=== PATIENT | female | born 1990 | race African-American/Black ===

== ENCOUNTER 2016-07-12 20:57 | Emergency (ER) | payer OTHER ==
--- NOTE | 2016-07-12 21:11 | PHYS DOC ---
General Stated Complaint: N/V Time Seen by MD: 21:08 Source: patient Problems: History of Present Illness Initial Comments Patient here for nausea vomiting. Patient states that since this morning, she said 4 episodes of vomiting. She is able tolerate small amount of fluids and juice, vomits up everything else she has to eat or drink. She says she seen mucus but no blood or bilious material. She's felt a little hot and cold today but no distinct fever and chills. No runny nose or sore throat. There is no chest pain or shortness of breath. She does have some lower abdominal discomfort as well which she is unable to describe in quality. She said it was so bad that she was bent over her desk at work earlier, but better now. She's had one episode of diarrhea earlier this morning but not since. There is no vaginal bleeding or discharge. Her last period was the 10th of this month. She says she has a tubal ligation but got in the past despite this. She denies any acute focal extremity or neurologic complaints. 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 Other than present for care today she's been nothing for this at home and notes no factors increase or decrease her symptoms. Patient's past history is remarkable for multiple mental health diagnoses include bipolar disorder and schizophrenia. She says she has not been taking her medications for quite some time. She says her last mental health issue was in December of last year. She is nonsmoker and nonuser of ethanol. She drinks quite a bit of tea during the course today. She avoids coffee and soda. She did have an energy drink last night. She is no significant user of Tylenol aspirin or Motrin. Allergies: Coded Allergies: Penicillins (Verified Allergy, Unknown, 07/12/16) Past Medical History Medical History: no pertinent history Psychosocial History: bipolar, schizophrenia Social History Smoker: non-smoker Alcohol: none Review of Systems All Other Systems: Reviewed and Negative Physical Exam General Appearance: WD/WN, no apparent distress Ear, Nose, Throat: normal ENT inspection, normal pharynx Neck: full range of motion, supple, normal inspection Respiratory: lungs clear, normal breath sounds, no respiratory distress Cardiovascular: regular rate, rhythm, no edema Gastrointestinal: non tender, soft, no organomegaly Back: no CVA tenderness, no vertebral tenderness Extremities: non-tender, normal inspection Neurologic/Psychiatric: alert, normal mood/affect, oriented x 3 Skin: normal color Lymphatic: no adenopathy Comments Generally this is a well-developed well-nourished female in no acute distress. Vitals are as noted. Pertinent findings on physical exam shows a ears and throat to be clear. Chest is clear and cardiac exams unremarkable. The abdomen is soft and fully nontender without masses, organomegaly, peritoneal findings. Back shows no CVA tenderness. Externally show no rashes, cyanosis, or edema. Neurologic exam finds patient is alert oriented 4. She is not actively hallucinating. Remainder of physical exam is clinically unremarkable. Orders, Labs, Meds Old charts note no prior ER visits within the current system. 2230 Patient resting comfortably in the ED. She really had no signs or symptoms suggesting any evidence of dehydration, she was not actively vomiting, it was felt reasonable to defer labs and x-rays this time. She did receive some Zofran as well as a GI cocktail, which is relieved her abdominal pain and she's had no further vomiting. She is able tolerate fluids without difficulty. I discussed with the patient the uncertain cause for abdominal upset. This may be mild viral illness or some food intolerance. In any event, as long as she is able tolerate fluids I think she'll do well. We discussed home care including rest, increasing clear liquids, and use of Advil or Tylenol as needed for fever or pain. I'll give her prescription for Zofran should she have any further vomiting. She voices understanding the usual self limited nature of this illness , but also voices the need to return if she is worsening anyway as well as to follow up with primary care for recheck. Her abdominal pain is mostly in the lower area, and well GI cocktail did seem to help I don't strongly suspect gastritis or ulcer disease. She really has limited GI risk factors, that she does drink tea and used an energy drink in any event, she looks well, not vomiting, able tolerate by mouth fluids, in no acute discomfort distress at this time, and okay for discharge home. TREV HERNÁNDEZ MD Jul 12, 2016 21:11
[2016-07-12 21:15] VITALS: BP 125/72
[2016-07-12] MEDS ORDERED: LIDO:MAALOX 1:1 20 ML SINGLE DOSE ONE (21:33)
[2016-07-12] MEDS ORDERED: ONDANSETRON ODT 4 MG TAB.RAPDIS ONE (21:34)
[2016-07-12] MEDS: ONDANSETRON ODT 4 MG TAB.RAPDIS PO ONE (21:36)
[2016-07-12] MEDS: LIDO:MAALOX 1:1 20 ML SINGLE DOSE PO ONE (21:36)
== END 2016-07-12 22:55 | disposition home or self-care (01) ==
LOC: ER 21:02
DX: R11.2 Nausea with vomiting, unspecified (principal); R10.9 Unspecified abdominal pain; R19.7 Diarrhea, unspecified; F31.9 Bipolar disorder, unspecified; F20.9 Schizophrenia, unspecified; Z88.0 Allergy status to penicillin
CPT/HCPCS: 99283; Q0162

== ENCOUNTER 2016-11-05 03:35 | Emergency (ER) | payer OTHER ==
[~2016-11-05] VITALS: Ht 160 cm; Wt 108.7 kg
[2016-11-05] MEDS ORDERED: 0.9 % SODIUM CHLORIDE 10 ML DISP.SYRIN. IV PRN (03:45)
--- NOTE | 2016-11-05 03:51 | EKG ---
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
--- NOTE | 2016-11-05 03:59 | PHYS DOC ---
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 Awakened her at 0300am from sleep. Pain was "squeezing" and a 4 in the left breast. No radiation. Some SOA. No palpitations. She has not been on her meds "because I can't afford them." Has been "working a lot." Some loose stool today. No travel, no BCP. Review of Systems Review of Systems Constitutional: Denies fever or chills Eyes: Denies change in visual acuity, redness, or eye pain HENT: Denies nasal congestion or sore throat Respiratory: Denies cough or shortness of breath Cardiovascular: see HPI GI: Denies abdominal pain, nausea, vomiting, bloody stools. Some loose stool. : Denies dysuria or hematuria Musculoskeletal: Denies back pain or joint pain Integument: Denies rash or skin lesions Neurologic: Denies headache, focal weakness or sensory changes Current Medications Current Medications Current Medications Medications (Trade) Dose Ordered Sig/Denise Start Time Stop Time Status Last Admin Dose Admin Sodium Chloride (Normal Saline Flush) 10 ml QSHIFT PRN 11/05/16 03:45 Allergies Allergies Allergies Coded Allergies Type Severity Reaction Last Updated Verified Penicillins Allergy Intermediate 11/05/16 Yes Physical Exam Physical Exam Constitutional: Well developed, well nourished, no acute distress, non-toxic appearance. HENT: Normocephalic, atraumatic, bilateral external ears normal, oropharynx moist, no oral exudates, nose normal. Eyes: PERRLA, EOMI, conjunctiva normal, no discharge. Neck: Normal range of motion, no tenderness, supple, no stridor. Cardiovascular:Heart rate regular rhythm, no murmur Lungs & Thorax: Bilateral breath sounds clear to auscultation Abdomen: Bowel sounds normal, soft, no tenderness, no masses, no pulsatile masses. Skin: Warm, dry, no erythema, no rash. Back: No tenderness, no CVA tenderness. Extremities: No tenderness, no cyanosis, no clubbing, ROM intact, no edema. No calf pain, swelling or tenderness. Neurologic: Alert and oriented X 3, normal motor function, normal sensory function, no focal deficits noted. Psychologic: Affect normal, judgement normal, mood normal. Current Patient Data Vital Signs BP 131/70, P 20, T 98.4, sat 100% Lab Results Urine test negative Laboratory Tests Test 11/05/16 04:10 11/05/16 04:22 White Blood Count 6.0 x10^3/uL Red Blood Count 3.94 x10^6/uL Hemoglobin 10.2 g/dL Hematocrit 32.1 % Mean Corpuscular Volume 81 fL Mean Corpuscular Hemoglobin 26 pg Mean Corpuscular Hemoglobin Concent 32 g/dL Red Cell Distribution Width 13.6 % Platelet Count 200 x10^3/uL Neutrophils (%) (Auto) 36 % Lymphocytes (%) (Auto) 57 % Monocytes (%) (Auto) 5 % Eosinophils (%) (Auto) 2 % Basophils (%) (Auto) 1 % Neutrophils # (Auto) 2.2 x10^3uL Lymphocytes # (Auto) 3.4 x10^3/uL Monocytes # (Auto) 0.3 x10^3/uL Eosinophils # (Auto) 0.1 x10^3/uL Basophils # (Auto) 0.0 x10^3/uL Prothrombin Time 10.1 SEC Prothromb Time International Ratio 1.0 Activated Partial Thromboplast Time 25 SEC D-Dimer (Shweta) 0.30 mg/L Sodium Level 140 mmol/L Potassium Level 3.8 mmol/L Chloride Level 106 mmol/L Carbon Dioxide Level 27 mmol/L Anion Gap 7 Blood Urea Nitrogen 13 mg/dL Creatinine 1.1 mg/dL Estimated GFR (Cockcroft-Gault) 71.6 BUN/Creatinine Ratio 12 Glucose Level 79 mg/dL Calcium Level 8.6 mg/dL Total Bilirubin 0.5 mg/dL Direct Bilirubin 0.2 mg/dL Aspartate Amino Transf (AST/SGOT) 14 U/L Alanine Aminotransferase (ALT/SGPT) 18 U/L Alkaline Phosphatase 72 U/L Creatine Kinase 169 U/L Creatine Kinase MB (Mass) 0.5 ng/mL Creatine Kinase MB Relative Index 0.3 % Troponin I Quantitative < 0.017 ng/mL Total Protein 7.2 g/dL Albumin 3.3 g/dL Albumin/Globulin Ratio 0.8 Lipase 250 U/L Bedside Urine HCG, Qualitative hcg negative Current Medications Medications (Trade) Dose Ordered Sig/Denise Route PRN Reason Start Time Stop Time Status Last Admin Dose Admin Sodium Chloride (Normal Saline Flush) 10 ml QSHIFT PRN IV AFTER MEDS AND BLOOD DRAWS 11/05/16 03:45 EKG EKG EKG by my interpretation: NSR rate 74. No acute ST changes. No STEMI Radiology/Procedures Radiology/Procedures CXR by my interpretation: normal cardiac silhouette; no infiltrate. Course & Med Decision Making Course & Med Decision Making Pertinent Labs and Imaging studies reviewed. (See chart for details) Evaluated patient upon arrival. D dimer and cardiac enzymes normal. Lipase normal. May be reflux, biliary colic. Dragon Disclaimer Dragon Disclaimer This chart was dictated in whole or in part using Voice Recognition software in a busy, high-work load, and often noisy Emergency Department environment. It may contain unintended and wholly unrecognized errors or omissions. Departure Departure: Impression: Primary Impression: Chest pain Disposition: HOME, SELF-CARE Condition: GOOD Referrals: PCP,NO (PCP) Patient Instructions: Chest Pain (Nonspecific) BUTCH CRAIN MD Nov 05, 2016 03:59
[2016-11-05 04:22] LABS: BASO % 1 % (0-3); EOS # 0.1 x10^3/uL (0.0-0.7); EOS % 2 % (0-3); HEMATOCRIT 32.1 % (36.0-47.0); HEMOGLOBIN 10.2 g/dL (12.0-15.5); LYMPH # 3.4 x10^3/uL (1.0-4.8); LYMPH % 57 % (24-48); MEAN CORPUSCULAR HEMOGLOBIN 26 pg (25-35); MEAN CORPUSCULAR HGB CONC 32 g/dL (31-37); MEAN CORPUSCULAR VOLUME 81 fL (79-100); MONO # 0.3 x10^3/uL (0.0-1.1); MONO % 5 % (0-9); NEUT # 2.2 x10^3uL (1.8-7.7); NEUT % 36 % (31-73); PLATELET COUNT 200 x10^3/uL (140-400); RED BLOOD COUNT 3.94 x10^6/uL (3.50-5.40); RED CELL DISTRIBUTION WIDTH 13.6 % (11.5-14.5)
[2016-11-05 04:43] LABS: ALBUMIN 3.3 g/dL (3.4-5.0); ALBUMIN/GLOBULIN RATIO 0.8 (1.0-1.7); CALCIUM 8.6 mg/dL (8.5-10.1); CREATININE 1.1 mg/dL (0.6-1.0); DIRECT BILIRUBIN 0.2 mg/dL (0.0-0.2); GFR 71.6; POTASSIUM 3.8 mmol/L (3.5-5.1); TOTAL BILIRUBIN 0.5 mg/dL (0.2-1.0); TOTAL PROTEIN 7.2 g/dL (6.4-8.2)
[2016-11-05] MEDS ORDERED: FAMO-63 PO (05:00)
[2016-11-05 05:07] LABS: % BANDS 6 % (0-9); % LYMPHS 9 % (24-48); % MONOS 3 % (0-10); % SEGS 82 % (35-66); PLT ESTIMATE ADEQUATE (ADEQUATE)
[2016-11-05 05:15] VITALS: BP 122/65
--- NOTE | 2016-11-05 08:39 | RAD ---
INDICATION: chest pain COMPARISON: None FINDINGS: Single view of chest obtained. No focal airspace consolidation. Mediastinal contour is mildly prominent but a portion of this could be from portable technique. No gross osseous destructive lesion. IMPRESSION: No focal airspace consolidation or edema.
== END 2016-11-05 05:25 | disposition home or self-care (01) ==
LOC: ER 03:35
DX: R07.9 Chest pain, unspecified (principal); J45.909 Unspecified asthma, uncomplicated; F31.9 Bipolar disorder, unspecified; Z88.0 Allergy status to penicillin
CPT/HCPCS: 36415; 71010; 80053; 80076; 81025; 82248; 82553; 83690; 84484; 85007; 85027; 85379; 85610; 85730; 93005; 99285-25

== ENCOUNTER 2016-12-23 16:49 | Emergency (ER) | payer OTHER ==
[~2016-12-23] VITALS: Ht 162.6 cm; Wt 90.7 kg
[~2016-12-23 16:49] MED LIST: FAMO-63 PO
[2016-12-23] MEDS ORDERED: IPRATRPIUM/ALBUTEROL 0.5/2.5MG 3 ML NEBU. NEB ONE (18:15)
--- NOTE | 2016-12-23 18:28 | ED.ADGEN ---
Past History Past Medical History: Asthma, Bipolar, Seizure, Schizophrenia Additional Past Medical Histor: suicidal attempt (age 11-age 23) Past Surgical History: Tubal ligation Smoking: Non-smoker Alcohol Use: Occasionally Drug Use: None Adult General Chief Complaint Chief Complaint ".. I got a cough, sore throat x3 days.. and Vaginal discharge... for 2 weeks. " HPI HPI Patient is a 26 year old female who presents with above hx and complaints. No primary care. Pt. has hx of 2 life time sexual partners. Pt. states discharge started two weeks ago. Pt. has previous STD infection of chlamydia which was treated. Patient states her cough has been nonproductive and sore throat started approximately same time of cough. No history of immunosuppression or HIV. Does have a history of bipolar disorder, schizophrenia, asthma, seizures and has been off her meds for approximately year . Patient denies illicit drug use and smoking. Patient relates a family history of hypertension and diabetes. Review of Systems Review of Systems Constitutional: Denies fever or chills [] Eyes: Denies change in visual acuity, redness, or eye pain [] HENT: Complaints of nasal congestion , and sore throat [] Respiratory: Hx of cough Cardiovascular: No additional information not addressed in HPI [] GI: Denies abdominal pain, nausea, vomiting, bloody stools or diarrhea [] : Denies dysuria or hematuria []Complaints of vaginal discharge. Musculoskeletal: Denies back pain or joint pain [] Integument: Denies rash or skin lesions [] Neurologic: Denies headache, focal weakness or sensory changes [] Endocrine: Denies polyuria or polydipsia [] Family History Family History HTN, DM Current Medications Current Medications Current Medications Medications (Trade) Dose Ordered Sig/Denise Start Time Stop Time Status Last Admin Dose Admin Albuterol/ Ipratropium (Duoneb) 3 ml 1X ONCE 12/23/16 18:15 12/23/16 18:23 DC 12/23/16 18:20 3 ML Azithromycin (Zithromax) 1,000 mg 1X ONCE 12/23/16 20:30 12/23/16 20:31 DC 12/23/16 20:24 1,000 MG Ceftriaxone Sodium 1 gm/ Sodium Chloride 50 ml @ 100 mls/hr 1X ONCE 12/23/16 20:15 12/23/16 20:44 DC 12/23/16 20:15 100 MLS/HR Ceftriaxone Sodium (Rocephin) 1 gm STK-MED ONCE 12/23/16 20:12 12/23/16 20:13 DC Lactated Ringer's 1,000 ml @ 1,000 mls/hr Q1H 12/23/16 18:30 12/23/16 19:14 DC 12/23/16 19:13 1,000 MLS/HR Metronidazole (Flagyl) 2,000 mg 1X ONCE 12/23/16 20:30 12/23/16 20:31 DC 12/23/16 20:23 2,000 MG Ondansetron HCl (Zofran) 8 mg 1X ONCE 12/23/16 20:30 12/23/16 20:31 DC 12/23/16 20:23 8 MG Sodium Chloride 50 ml @ As Directed STK-MED ONCE 12/23/16 20:13 12/23/16 20:14 DC Allergies Allergies Allergies Coded Allergies Type Severity Reaction Last Updated Verified Penicillins Allergy Intermediate 11/05/16 Yes Physical Exam Physical Exam Constitutional: no acute distress, non-toxic appearance. [] HENT: Normocephalic, atraumatic, bilateral external ears normal, oropharynx moist but injected, no oral exudates, nose rhinorrhea. Nose ring and lip ring. Eyes: PERRLA, EOMI, conjunctiva normal, no discharge. [] Neck: Normal range of motion, no tenderness, supple, no stridor. [] Cardiovascular:Heart rate regular rhythm, no murmur [] Lungs & Thorax: Bilateral breath sounds equal at apexes with a few scattered wheezes auscultation [] Abdomen: Bowel sounds normal, soft, some generalized lower abdomen tenderness, no masses, no pulsatile masses. Some suprapubic tenderness. Some cervical motion tenderness. Has large amount of white malodorous discharge. Old surgical scars on abdomen. No heel tap. Skin: Warm, dry, no erythema, no rash. [] Back: No tenderness, no CVA tenderness. [] Extremities: No tenderness, no cyanosis, no clubbing, ROM intact, no edema. [] Neurologic: Alert and oriented X 3, normal motor function, normal sensory function, no focal deficits noted. [] Psychologic: Affect anxious, judgement normal, mood normal. [] Current Patient Data Vital Signs Vital Signs Date Time Temp Pulse Resp B/P (MAP) Pulse Ox O2 Delivery O2 Flow Rate FiO2 12/23/16 22:30 98.3 75 20 106/61 (76) 97 12/23/16 18:20 Room Air Lab Results Laboratory Tests Test 12/23/16 17:40 12/23/16 17:50 12/23/16 17:54 12/23/16 19:05 Urine Opiates Screen Neg (NEG) Urine Methadone Screen Neg (NEG) Urine Barbiturates Neg (NEG) Urine Phencyclidine Screen Neg (NEG) Urine Amphetamine/Methamphetamine Neg (NEG) Urine Benzodiazepines Screen Neg (NEG) Urine Cocaine Screen Neg (NEG) Urine Cannabinoids Screen Neg (NEG) Urine Ethyl Alcohol Neg (NEG) Urine Collection Type Unknown Urine Color Yellow Urine Clarity Hazy Urine pH 5.5 Urine Specific [place] >=1.030 Urine Protein Neg (NEG-TRACE) Urine Glucose (UA) Neg mg/dL (NEG) Urine Ketones (Stick) Neg mg/dL (NEG) Urine Blood Neg (NEG) Urine Nitrite Neg (NEG) Urine Bilirubin Neg (NEG) Urine Urobilinogen Dipstick 0.2 mg/dL (0.2 mg/dL) Urine Leukocyte Esterase Mod (NEG) Urine RBC 3-5 /HPF (0-2) Urine WBC 5-10 /HPF (0-4) Urine Squamous Epithelial Cells Many /LPF Urine Bacteria Mod /HPF (0-FEW) Urine Mucus Mod /LPF Group A Streptococcus Rapid Negative (NEGATIVE) POC Urine HCG, Qualitative hcg negative (Negative) White Blood Count 8.5 x10^3/uL (4.0-11.0) Red Blood Count 4.58 x10^6/uL (3.50-5.40) Hemoglobin 12.2 g/dL (12.0-15.5) Hematocrit 37.1 % (36.0-47.0) Mean Corpuscular Volume 81 fL (79-100) Mean Corpuscular Hemoglobin 27 pg (25-35) Mean Corpuscular Hemoglobin Concent 33 g/dL (31-37) Red Cell Distribution Width 13.8 % (11.5-14.5) Platelet Count 184 x10^3/uL (140-400) Neutrophils (%) (Auto) 51 % (31-73) Lymphocytes (%) (Auto) 41 % (24-48) Monocytes (%) (Auto) 7 % (0-9) Eosinophils (%) (Auto) 1 % (0-3) Basophils (%) (Auto) 0 % (0-3) Neutrophils # (Auto) 4.4 x10^3uL (1.8-7.7) Lymphocytes # (Auto) 3.5 x10^3/uL (1.0-4.8) Monocytes # (Auto) 0.6 x10^3/uL (0.0-1.1) Eosinophils # (Auto) 0.1 x10^3/uL (0.0-0.7) Basophils # (Auto) 0.0 x10^3/uL (0.0-0.2) Sodium Level 139 mmol/L (136-145) Potassium Level 4.1 mmol/L (3.5-5.1) Chloride Level 107 mmol/L (98-107) Carbon Dioxide Level 27 mmol/L (21-32) Anion Gap 5 (6-14) L Blood Urea Nitrogen 10 mg/dL (7-20) Creatinine 1.0 mg/dL (0.6-1.0) Estimated GFR (Cockcroft-Gault) 79.9 BUN/Creatinine Ratio 10 (6-20) Glucose Level 92 mg/dL (70-99) Calcium Level 8.5 mg/dL (8.5-10.1) Total Bilirubin 0.5 mg/dL (0.2-1.0) Direct Bilirubin 0.2 mg/dL (0.0-0.2) Aspartate Amino Transferase (AST) 11 U/L (15-37) L Alanine Aminotransferase (ALT) 14 U/L (14-59) Alkaline Phosphatase 67 U/L (46-116) Total Protein 6.5 g/dL (6.4-8.2) Albumin 3.1 g/dL (3.4-5.0) L Albumin/Globulin Ratio 0.9 (1.0-1.7) L Lipase 175 U/L (73-393) Microbiology 12/23/16 Wet Prep - Final, Complete EKG EKG [] Radiology/Procedures Radiology/Procedures I interpretation of chest x-ray shows no acute cardiopulmonary findings. No free air under the diaphragm. Nonspecific bowel gas pattern. There was some increased stool. But a nonobstructive pattern.[] Course & Med Decision Making Course & Med Decision Making Pertinent Labs and Imaging studies reviewed. (See chart for details) Patient take Keflex 500 x3 times a day for 10 days. After completing the Keflex she will take Diflucan 200 x2days. Patient must follow-up with health department. Must follow-up cultures taken here. Review all labs with primary care. Must practice safe sex partner, or she'll become reinfected. [] Final Impression Final Impression 1. Cervicitis 2. Trichomonas 3. Urinary tract infection 4. Mal nutrition- albumin 3.1 Problems: Dragon Disclaimer Dragon Disclaimer This electronic medical record was generated, in whole or in part, using a voice recognition dictation system. MARGE HOANG MD Dec 23, 2016 18:28
[2016-12-23] MEDS ORDERED: IV RINGERS SOLUTION,LACTATED 1,000 ML IV SCH (18:30)
[2016-12-23 18:41] LABS: BACTERIA,URINE MOD /HPF (0-FEW); BILIRUBIN,URINE NEG (NEG); CLARITY,URINE HAZY; COLOR,URINE YELLOW; GLUCOSE,URINE NEG (NEG); NITRITE,URINE NEG (NEG); SQUAMOUS EPITHELIAL CELL,UR MANY /LPF; UROBILINOGEN,URINE 0.2 mg/dL (0.2 mg/dL)
[2016-12-23] MEDS ORDERED: ONDANSETRON PF 4 MG/2 ML VIAL. IV ONE ×2 (18:45→20:30)
[2016-12-23 19:01] LABS: AMPHETAMINE/METHAMPHETAMINE NEG (NEG); BARBITURATES NEG (NEG); BENZODIAZEPINES NEG (NEG); CANNABINOIDS NEG (NEG); COCAINE NEG (NEG); METHADONE NEG (NEG); OPIATES NEG (NEG); PHENCYCLIDINE NEG (NEG)
[2016-12-23 19:28] LABS: BASO % 0 % (0-3); EOS # 0.1 x10^3/uL (0.0-0.7); EOS % 1 % (0-3); HEMATOCRIT 37.1 % (36.0-47.0); HEMOGLOBIN 12.2 g/dL (12.0-15.5); LYMPH # 3.5 x10^3/uL (1.0-4.8); LYMPH % 41 % (24-48); MEAN CORPUSCULAR HEMOGLOBIN 27 pg (25-35); MEAN CORPUSCULAR HGB CONC 33 g/dL (31-37); MEAN CORPUSCULAR VOLUME 81 fL (79-100); MONO # 0.6 x10^3/uL (0.0-1.1); MONO % 7 % (0-9); NEUT # 4.4 x10^3uL (1.8-7.7); NEUT % 51 % (31-73); PLATELET COUNT 184 x10^3/uL (140-400); RED BLOOD COUNT 4.58 x10^6/uL (3.50-5.40); RED CELL DISTRIBUTION WIDTH 13.8 % (11.5-14.5); WHITE BLOOD COUNT 8.5 x10^3/uL (4.0-11.0)
[2016-12-23 19:46] LABS: ALBUMIN 3.1 g/dL (3.4-5.0); ALBUMIN/GLOBULIN RATIO 0.9 (1.0-1.7); CALCIUM 8.5 mg/dL (8.5-10.1); DIRECT BILIRUBIN 0.2 mg/dL (0.0-0.2); GFR 79.9; POTASSIUM 4.1 mmol/L (3.5-5.1); TOTAL BILIRUBIN 0.5 mg/dL (0.2-1.0); TOTAL PROTEIN 6.5 g/dL (6.4-8.2)
[2016-12-23] MEDS ORDERED: cefTRIAXone SODIUM 1 GM VIAL IV ONE (20:12)
[2016-12-23] MEDS ORDERED: IV NORMAL SALINE 50ML 50 ML ONE (20:13)
[2016-12-23] MEDS ORDERED: AZITHROMYCIN 250 MG TABLET. PO ONE (20:30)
[2016-12-23] MEDS ORDERED: metroNIDAZOLE 500 MG TABLET PO ONE (20:30)
[2016-12-23] MEDS ORDERED: CEPH-264 PO (22:16)
[2016-12-23] MEDS ORDERED: FLUC200T PO (22:16)
[2016-12-23 22:30] VITALS: BP 106/61
--- NOTE | 2016-12-24 08:39 | RAD ---
Chest, 2 views, 12/23/2016: History: Cough, abdominal pain The heart size and pulmonary vascularity are normal. No pulmonary infiltrates are seen. There is no evidence of pleural fluid. IMPRESSION: No acute cardiopulmonary abnormality is detected. Abdomen, 2 views, 12/23/2016: History: Abdominal pain, discharge There is a moderate amount of gas in the colon a nonspecific pattern. No free air is present in the abdomen. There is no evidence of organomegaly. Lower pelvic calcifications are probably phleboliths. No bony abnormality is detected. IMPRESSION: No acute abdominal abnormality is identified.
[2016-12-24 23:12] LABS: HCV ANTIBODY 0.1 s/co ratio (0.0-0.9); HEP A IGM ABDY Negative (Negative)
[2016-12-27 14:09] LABS: CHLAMYDIA PROBE Positive (Negative)
== END 2016-12-23 22:30 | disposition home or self-care (01) ==
LOC: ER 16:49
DX: A59.9 Trichomoniasis, unspecified (principal); N39.0 Urinary tract infection, site not specified; N72 Inflammatory disease of cervix uteri; J02.9 Acute pharyngitis, unspecified; E46 Unspecified protein-calorie malnutrition; J45.909 Unspecified asthma, uncomplicated; F20.9 Schizophrenia, unspecified; F31.9 Bipolar disorder, unspecified; Z68.34 Body mass index [BMI] 34.0-34.9, adult; Z88.0 Allergy status to penicillin
CPT/HCPCS: 36415; 71020; 74020; 80053; 80074; 80307; 81001; 81025; 82248; 83690; 85025; 86592; 86593; 86701; 86702; 86703; 87070; 87086; 87491; 87535; 87591; 87880; 94640; 96361; 96374; 96375; 96376; 99285; J0456; J0696; J2405; J7120; J7620; Q0111; 80076; G0479

== ENCOUNTER 2017-01-14 16:25 | Emergency (ER) | payer OTHER ==
[~2017-01-14] VITALS: Ht 160 cm; Wt 110.7 kg
[~2017-01-14 16:25] MED LIST changes: +CEPH-264 PO; +FLUC200T PO
[2017-01-14] MEDS ORDERED: IV NORMAL SALINE 1,000ML 1,000 ML IV SCH (17:02)
[2017-01-14 17:21] LABS: BASO % 1 % (0-3); EOS # 0.1 x10^3/uL (0.0-0.7); EOS % 1 % (0-3); HEMOGLOBIN 11.3 g/dL (12.0-15.5); LYMPH % 36 % (24-48); MEAN CORPUSCULAR HEMOGLOBIN 27 pg (25-35); MEAN CORPUSCULAR HGB CONC 33 g/dL (31-37); MEAN CORPUSCULAR VOLUME 82 fL (79-100); MONO # 0.4 x10^3/uL (0.0-1.1); MONO % 5 % (0-9); NEUT # 4.8 x10^3uL (1.8-7.7); NEUT % 58 % (31-73); PLATELET COUNT 213 x10^3/uL (140-400); RED BLOOD COUNT 4.16 x10^6/uL (3.50-5.40); RED CELL DISTRIBUTION WIDTH 14.5 % (11.5-14.5); WHITE BLOOD COUNT 8.3 x10^3/uL (4.0-11.0)
--- NOTE | 2017-01-14 17:28 | PHYS DOC ---
Past History Past Medical History: Asthma, Bipolar, Schizophrenia Additional Past Medical Histor: suicidal attempt (age 11-age 23) Past Surgical History: No Surgical History Smoking: Non-smoker Alcohol Use: None Drug Use: None Adult General Chief Complaint Chief Complaint: CHEST PAIN HPI HPI Patient is a 26 year old female who presents with complaint of chest pain. The patient states that her symptoms started approximately 1 hour prior to arrival. Patient states that the symptoms came on at rest. Patient states that she was having substernal pressure that she rated as 5 out of 10. Patient denied radiation of pain. Patient states that the pain did not worsen with exertion. Patient has history of asthma and bipolar disorder. Patient denies history of tobacco use. The patient states that she did have lightheadedness and nausea associated with symptoms. Due to persistence of pain, the patient called EMS and was brought to the emergency department for evaluation. The patient was given aspirin and nitroglycerin by EMS prior to arrival. Patient states that her pain has improved and rates it currently as 3 out of 10. Patient states that the pain worsens with movement and with palpation of her chest. Patient denies any recent fever or illness. Review of Systems Review of Systems Constitutional: Denies fever or chills [] Eyes: Denies change in visual acuity, redness, or eye pain [] HENT: Denies nasal congestion or sore throat [] Respiratory: Denies cough or shortness of breath [] Cardiovascular: Chest pain[] GI: Nausea and vomiting currently resolved, denies abdominal pain, bloody stools or diarrhea [] : Denies dysuria or hematuria [] Musculoskeletal: Denies back pain or joint pain [] Integument: Denies rash or skin lesions [] Neurologic: Denies headache, focal weakness or sensory changes [] Current Medications Current Medications Current Medications Medications (Trade) Dose Ordered Sig/Denise Start Time Stop Time Status Last Admin Dose Admin Sodium Chloride 1,000 ml @ 1,000 mls/hr Q1H 01/14/17 17:02 01/14/17 18:01 01/14/17 17:02 1,000 MLS/HR Allergies Allergies Allergies Coded Allergies Type Severity Reaction Last Updated Verified Penicillins Allergy Intermediate 11/05/16 Yes Physical Exam Physical Exam Constitutional: Well developed, well nourished, no acute distress, non-toxic appearance. [] HENT: Normocephalic, atraumatic, bilateral external ears normal, oropharynx moist, no oral exudates, nose normal. [] Eyes: PERRLA, EOMI, conjunctiva normal, no discharge. [] Neck: Normal range of motion, no tenderness, supple, no stridor. [] Cardiovascular:Heart rate regular rhythm, no murmur [] Lungs & Thorax: Bilateral breath sounds clear to auscultation [] Abdomen: Bowel sounds normal, soft, no tenderness, no masses, no pulsatile masses. [] Skin: Warm, dry, no erythema, no rash. [] Back: No tenderness, no CVA tenderness. [] Extremities: No tenderness, no cyanosis, no clubbing, ROM intact, no edema. [] Neurologic: Alert and oriented X 3, normal motor function, normal sensory function, no focal deficits noted. [] Psychologic: Affect normal, judgement normal, mood normal. [] Current Patient Data Vital Signs Vital Signs Date Time Temp Pulse Resp B/P (MAP) Pulse Ox O2 Delivery O2 Flow Rate FiO2 01/14/17 16:35 98.6 75 20 98 Room Air Lab Results Laboratory Tests Test 01/14/17 16:34 01/14/17 17:25 White Blood Count 8.3 x10^3/uL Red Blood Count 4.16 x10^6/uL Hemoglobin 11.3 g/dL Hematocrit 34.0 % Mean Corpuscular Volume 82 fL Mean Corpuscular Hemoglobin 27 pg Mean Corpuscular Hemoglobin Concent 33 g/dL Red Cell Distribution Width 14.5 % Platelet Count 213 x10^3/uL Neutrophils (%) (Auto) 58 % Lymphocytes (%) (Auto) 36 % Monocytes (%) (Auto) 5 % Eosinophils (%) (Auto) 1 % Basophils (%) (Auto) 1 % Neutrophils # (Auto) 4.8 x10^3uL Lymphocytes # (Auto) 3.0 x10^3/uL Monocytes # (Auto) 0.4 x10^3/uL Eosinophils # (Auto) 0.1 x10^3/uL Basophils # (Auto) 0.0 x10^3/uL D-Dimer (Shweta) 0.37 mg/L Sodium Level 140 mmol/L Potassium Level 4.0 mmol/L Chloride Level 107 mmol/L Carbon Dioxide Level 26 mmol/L Anion Gap 7 Blood Urea Nitrogen 18 mg/dL Creatinine 1.0 mg/dL Estimated GFR (Cockcroft-Gault) 79.9 BUN/Creatinine Ratio 18 Glucose Level 103 mg/dL Calcium Level 9.0 mg/dL Magnesium Level 1.7 mg/dL Total Bilirubin 0.4 mg/dL Aspartate Amino Transf (AST/SGOT) 54 U/L Alanine Aminotransferase (ALT/SGPT) 53 U/L Alkaline Phosphatase 47 U/L Creatine Kinase 149 U/L Creatine Kinase MB (Mass) < 0.5 ng/mL Creatine Kinase MB Relative Index 0.3 % Total Protein 6.5 g/dL Albumin 3.1 g/dL Albumin/Globulin Ratio 0.9 Lipase 171 U/L Urine Collection Type Unknown Urine Color Yellow Urine Clarity Hazy Urine pH 6.0 Urine Specific Rheems 1.020 Urine Protein Neg Urine Glucose (UA) Neg mg/dL Urine Ketones (Stick) Neg mg/dL Urine Blood Neg Urine Nitrite Neg Urine Bilirubin Neg Urine Urobilinogen Dipstick 1 mg/dL Urine Leukocyte Esterase Neg Urine RBC 1-2 /HPF Urine WBC 1-4 /HPF Urine Squamous Epithelial Cells Few /LPF Urine Bacteria 0 /HPF Urine Mucus Slight /LPF Urine Opiates Screen Neg Urine Methadone Screen Neg Urine Barbiturates Neg Urine Phencyclidine Screen Neg Urine Amphetamine/Methamphetamine Neg Urine Benzodiazepines Screen Neg Urine Cocaine Screen Neg Urine Cannabinoids Screen Neg Urine Ethyl Alcohol Neg Current Medications Medications (Trade) Dose Ordered Sig/Denise Route PRN Reason Start Time Stop Time Status Last Admin Dose Admin Sodium Chloride 1,000 ml @ 1,000 mls/hr Q1H IV 01/14/17 17:02 01/14/17 18:01 DC 01/14/17 17:02 EKG EKG Interpreted by me: Heart rate 77, sinus rhythm, normal intervals, normal axis, no acute ST/T-wave abnormalities present[] Radiology/Procedures Radiology/Procedures One view AP chest x-ray interpreted by me: No infiltrate, no effusions, normal cardiac silhouette[] Course & Med Decision Making Course & Med Decision Making Pertinent Labs and Imaging studies reviewed. (See chart for details) Patient's initial cardiac enzymes were negative. Patient's symptoms appear consistent with musculoskeletal pain. Patient's HEART score is 1. At time of sign out, patient is pending second set of enzymes for rule out of myocardial ischemia. Care of patient signed out to Dr. Robledo at 1817. H&P reviewed by me. I agree with previous assessment. With atypical reproducible chest wall pain with low cardiac risk factors. Repeat troponin is negative. Recommend supportive care with PCP follow-up. Patient may require GI referral. Recommended patient take daily baby aspirin and antacid. Return precautions reviewed. Patient verbalizes understanding agreement discharge instructions prior to departure. Dragon Disclaimer Dragon Disclaimer This chart was dictated in whole or in part using Voice Recognition software in a busy, high-work load, and often noisy Emergency Department environment. It may contain unintended and wholly unrecognized errors or omissions. Departure Departure: Impression: Primary Impression: Chest pain Disposition: HOME, SELF-CARE Condition: GOOD Referrals: PCP,NO (PCP) Patient Instructions: Chest Pain (Nonspecific), [id number] RAMIRO GIRON MD Jan 14, 2017 17:27 AROLDO ROBLEDO DO Jan 15, 2017 01:40
--- NOTE | 2017-01-14 17:29 | EKG ---
[address] [address] Test Date: 2017-01-14 Test Time: 16:29:52 Pat Name: RAMONA MARQUEZ Department: Room: Gender: F [employer]: BOUBACAR : 1990 Requested By: RAMIRO GIRON Order Number: [id number] Reading MD: Measurements Intervals [place] Rate: 77 P: 34 ME: 168 QRS: 39 QRSD: 88 T: 29 QT: 374 QTc: 425 Interpretive Statements SINUS RHYTHM NO SPECIFIC ECG ABNORMALITIES RI6.01 No previous ECG available for comparison
[2017-01-14 17:39] LABS: ALBUMIN 3.1 g/dL (3.4-5.0); ALBUMIN/GLOBULIN RATIO 0.9 (1.0-1.7); ALK PHOS 47 U/L (46-116); ALT (SGPT) 53 U/L (14-59); ANION GAP 7 (6-14); AST (SGOT) 54 U/L (15-37); BLOOD UREA NITROGEN 18 mg/dL (7-20); BUN/CREATININE RATIO 18 (6-20); CARBON DIOXIDE 26 mmol/L (21-32); CHLORIDE 107 mmol/L (98-107); CREATINE KINASE 149 U/L (26-192); GFR 79.9; GLUCOSE 103 mg/dL (70-99); LIPASE 171 U/L (73-393); MAGNESIUM 1.7 mg/dL (1.8-2.4); SODIUM 140 mmol/L (136-145); TOTAL BILIRUBIN 0.4 mg/dL (0.2-1.0); TOTAL PROTEIN 6.5 g/dL (6.4-8.2)
[2017-01-14 17:53] LABS: BARBITURATES NEG (NEG); BENZODIAZEPINES NEG (NEG); CANNABINOIDS NEG (NEG); COCAINE NEG (NEG); METHADONE NEG (NEG); OPIATES NEG (NEG); PHENCYCLIDINE NEG (NEG)
[2017-01-14 18:04] LABS: BILIRUBIN,URINE NEG (NEG); CLARITY,URINE HAZY; COLOR,URINE YELLOW; GLUCOSE,URINE NEG (NEG); NITRITE,URINE NEG (NEG); UROBILINOGEN,URINE 1 mg/dL (0.2 mg/dL)
[2017-01-14 18:05] LABS: BACTERIA,URINE 0 /HPF (0-FEW); SQUAMOUS EPITHELIAL CELL,UR FEW /LPF
[2017-01-14 18:12] LABS: AMPHETAMINE/METHAMPHETAMINE NEG (NEG)
[2017-01-14] MEDS ORDERED: KETOROLAC 30 MG/ML VIAL. IV ONE (18:15)
[2017-01-14 18:59] VITALS: BP 126/76
--- NOTE | 2017-01-15 09:13 | RAD ---
AP chest. History: Chest pain AP view was taken of the chest. Lungs are clear. Heart is normal in size without heart failure. There is no effusion. Impression: 1. No acute chest disease.
== END 2017-01-14 19:15 | disposition home or self-care (01) ==
LOC: ER 16:25
DX: R07.89 Other chest pain (principal); J45.909 Unspecified asthma, uncomplicated; F31.9 Bipolar disorder, unspecified; F20.9 Schizophrenia, unspecified; Z88.0 Allergy status to penicillin
CPT/HCPCS: 36415; 71010; 80053; 80307; 81001; 82553; 83690; 83735; 84484; 85025; 85379; 93005; 96361; 96374; 99285; J1885; G0479; J7030